=== PATIENT | female | born 1995 | race Caucasian/White ===

== ENCOUNTER 2020-01-29 08:47 | Emergency (ER) | payer OTHER ==
[~2020-01-29] VITALS: Ht 162.6 cm; Wt 65.8 kg
[2020-01-29] MEDS ORDERED: MUCINEX1200 MG PO (09:16)
[2020-01-29] MEDS ORDERED: AUGMENTIN PO (09:16)
[2020-01-29] MEDS ORDERED: FLONASE16 GM TOP (09:16)
[2020-01-29] MEDS ORDERED: CLARITIN-D 241 EACH PO (09:16)
== END 2020-01-29 09:32 | disposition home or self-care (01) ==
LOC: ER 08:47
DX: J32.8 Other chronic sinusitis (principal)